=== PATIENT | female | born 1995 | race Two or more races ===

== ENCOUNTER 2019-06-26 19:35 | Observation (INO) | payer MEDICAID ==
[~2019-06-26] VITALS: Ht 190.5 cm; Wt 88.5 kg
[2019-06-26] MEDS ORDERED: LACTATED RINGER'S 1,000 ML IV ONE (20:22)
[2019-06-26 21:16] LABS: Urine Bacteria FEW /hpf (None Seen); Urine Blood Negative /uL (Negative); Urine Mucus FEW (None Seen); Urine Specific Gravity 1.006 (1.001-1.035); Urine WBC 10 /hpf (0 - 5)
[2019-06-26 21:21] LABS: Amphetamine Screen, Urine NEGATIVE (NEGATIVE); Barbiturate Scree,Urine NEGATIVE (NEGATIVE); Benzodiazephine Screen, Urine NEGATIVE (NEGATIVE); Cannabinoid Screen, Urine NEGATIVE (NEGATIVE); Cocaine Screen, Urine NEGATIVE (NEGATIVE); Opiate Scree,Urine NEGATIVE (NEGATIVE); Phencyclidine Screen, Urine NEGATIVE (NEGATIVE)
== END 2019-06-26 21:50 | disposition home or self-care (01) | DRG 566 ==
LOC: LDRP 19:35
PROVIDERS: ADMIT Obstetrics & Gynecology; ATTEND Obstetrics & Gynecology
DX: O26.892 Other specified pregnancy related conditions, second trimester (principal); R10.9 Unspecified abdominal pain; Z3A.26 26 weeks gestation of pregnancy
CPT/HCPCS: 76815; 80307; 81001; G0378; 59025; 81002; 96365

== ENCOUNTER 2019-07-26 22:55 | Observation (INO) | payer MEDICAID ==
[~2019-07-26] VITALS: Ht 160 cm; Wt 86.2 kg
== END 2019-07-27 00:20 | disposition home or self-care (01) | DRG 563 ==
LOC: LDRP 22:55
PROVIDERS: ADMIT Obstetrics & Gynecology; ATTEND Obstetrics & Gynecology
DX: O60.03 Preterm labor without delivery, third trimester (principal); O24.415 Gestational diabetes mellitus in pregnancy, controlled by oral hypoglycemic drugs; O62.9 Abnormality of forces of labor, unspecified; Z3A.30 30 weeks gestation of pregnancy
CPT/HCPCS: 59025; 81002; 82948; 82962; G0378

== ENCOUNTER 2019-09-06 22:32 | Observation (INO) | payer MEDICAID ==
[~2019-09-06] VITALS: Ht 0.1 cm; Wt 0.0 kg
[2019-09-06] MEDS ORDERED: BETAMETHASONE ACET (6MG/ML) 5ML VIAL IM ONE (23:15)
[2019-09-06] MEDS: TERBUTALINE SULFATE 1 MG/ML 1ML VIAL SC PRN (23:50)
[2019-09-07] MEDS: TERBUTALINE SULFATE 1 MG/ML 1ML VIAL SC PRN (00:37)
== END 2019-09-07 01:20 | disposition home or self-care (01) | DRG 566 ==
LOC: LDRP 22:32
PROVIDERS: ADMIT Obstetrics & Gynecology; ATTEND Obstetrics & Gynecology
DX: O36.8130 Decreased fetal movements, third trimester, not applicable or unspecified (principal); O26.893 Other specified pregnancy related conditions, third trimester; R10.9 Unspecified abdominal pain; Z3A.36 36 weeks gestation of pregnancy
CPT/HCPCS: 59025; 76818; 81002; 82962; 96372; G0378; J0702; J3105; 82948

== ENCOUNTER 2019-09-08 00:06 | Observation (INO) | payer MEDICAID ==
[~2019-09-08] VITALS: Ht 160 cm; Wt 88.5 kg
[2019-09-08] MEDS ORDERED: BETAMETHASONE ACET (6MG/ML) 5ML VIAL IM ONE (00:30)
== END 2019-09-08 01:14 | disposition home or self-care (01) | DRG 861 ==
LOC: LDRP 00:06
PROVIDERS: ADMIT Specialist; ATTEND Specialist
DX: Z34.93 Encounter for supervision of normal pregnancy, unspecified, third trimester (principal); Z3A.36 36 weeks gestation of pregnancy
CPT/HCPCS: 59025; 81002; 82962; 96372; G0378

== ENCOUNTER 2019-09-10 13:12 | Observation (INO) | payer MEDICAID | END 2019-09-10 14:55 | disposition home or self-care (01) | DRG 563 | LOC: LDRP 13:12 | PROVIDERS: ADMIT Specialist; ATTEND Specialist | DX: O60.03 Preterm labor without delivery, third trimester (principal); Z3A.36 36 weeks gestation of pregnancy | CPT/HCPCS: 59025; 81002; G0378 ==

== ENCOUNTER 2019-09-15 19:19 | Observation (INO) | payer MEDICAID ==
[2019-09-15] MEDS ORDERED: BUTORPHANOL TARTRATE 2 MG/1 ML VIAL IM ONE (20:00)
== END 2019-09-15 20:08 | disposition home or self-care (01) | DRG 566 ==
LOC: LDRP 19:19
PROVIDERS: ADMIT Obstetrics & Gynecology; ATTEND Obstetrics & Gynecology
DX: O62.9 Abnormality of forces of labor, unspecified (principal); O99.89 Other specified diseases and conditions complicating pregnancy, childbirth and the puerperium; M54.9 Dorsalgia, unspecified; Z3A.37 37 weeks gestation of pregnancy
CPT/HCPCS: 59025; 81002; 82962; G0378

== ENCOUNTER 2019-09-23 10:05 | Inpatient (IN) | payer MEDICAID ==
[~2019-09-23] VITALS: Ht 160 cm; Wt 87.1 kg
[2019-09-23] MEDS ORDERED: LACTATED RINGER'S 1,000 ML IV SCH (11:55)
[2019-09-23] MEDS ORDERED: LACT. RINGERS/OXYTOCIN 20UNITS 1,000 ML IV SCH ×2 (11:55→17:45)
[2019-09-23] MEDS ORDERED: WITCH HAZEL-GLYCERIN PAD TOP PRN (12:00)
[2019-09-23] MEDS ORDERED: PHISODERM TOP SOLN 240ML BTL TOP PRN (12:00)
[2019-09-23] MEDS ORDERED: DERMOPLAST 60ML BOTTLE TOP PRN (12:00)
[2019-09-23] MEDS ORDERED: LIDOCAINE 2%HCL (LOCAL ANESTH.) INJ 20ML MDV ID ONE (12:00)
[2019-09-23 12:43] LABS: Urine Bacteria FEW /hpf (None Seen); Urine Blood Negative /uL (Negative); Urine Mucus FEW (None Seen); Urine Specific Gravity 1.014 (1.001-1.035); Urine WBC 15 /hpf (0 - 5)
[2019-09-23 12:48] LABS: Basophils # (auto) 0 10 ^3/uL (0-0.2); Basophils % (auto) 0.3 % (0.0-2.0); Eosinophils # (auto) 0 10 ^3/uL (0-0.8); Eosinophils % (auto) 0.3 % (0.0-7.0); Hematocrit 40.8 % (36.0-46.0); Hemoglobin 13.9 g/dL (12.2-16.2); Lymphocytes # (auto) 1.7 10 ^3/uL (0.4-5.4); Lymphocytes % (auto) 20.3 % (10.0-50.0); Mean Corpuscular Hemoglobin 30.7 pg (28.0-32.0); Mean Corpuscular Hgb Conc. 34.1 g/dL (32.0-36.0); Monocytes # (auto) 0.3 10 ^3/uL (0-1.3); Monocytes % (auto) 3.7 % (0.0-12.0); Neutrophils # (auto) 6.3 10 ^3/uL (1.6-8.6); Neutrophils % (auto) 75.4 % (37.0-80.0); Platelet Count (auto) 191 10^3/uL (140-450); Red Blood Cells 4.54 10^6/uL (4.0-5.20); White Blood Cell 8.4 10^3/uL (4.4-10.8)
[2019-09-23 12:54] LABS: INR 0.91 (0.9-1.15); Partial Thromboplastin Time 27.3 sec (23.64-32.05)
[2019-09-23 13:00] LABS: Albumin 2.7 g/dL (3.4-5.0); Calcium 9.3 mg/dL (8.5-10.1); Potassium 3.6 mmol/L (3.5-5.1)
[2019-09-23 13:03] LABS: BUN/Creatinine Ratio 9.8; Bilirubin, Total 0.5 mg/dL (0.2-1.0); Total Protein 7.4 g/dL (6.4-8.2)
[2019-09-23] MEDS ORDERED: LACTATED RINGER'S 1,000 ML IV ONE (14:46)
[2019-09-23] MEDS ORDERED: NALOXONE HCL 0.4 MG/ML VIAL IV ONE ×2 (15:00→15:45)
[2019-09-23] MEDS ORDERED: fentaNYL 200mCg/100ml W ROPIVA 100 ML EPI SCH ×2 (15:00→15:45)
[2019-09-23] MEDS ORDERED: ePHEDrine SULFATE 50 MG/ML AMP IV ONE ×2 (15:00→15:45)
[2019-09-23] MEDS ORDERED: LIDOCAINE HCL 2 %PF INJ 10ML AMP IJ ONE (15:45)
[2019-09-23] MEDS ORDERED: fentaNYL CITRATE 100 MCG/2 ML VL IV ONE (15:45)
[2019-09-23] MEDS ORDERED: BUTORPHANOL TARTRATE 2 MG/1 ML VIAL ONE (16:21)
[2019-09-23] MEDS ORDERED: PROMETHAZINE HCL 25 MG/ML 1ML ONE (16:22)
[2019-09-23] MEDS ORDERED: PROMETHAZINE HCL 25 MG/ML 1ML IM ONE (16:30)
[2019-09-23] MEDS ORDERED: BUTORPHANOL TARTRATE 2 MG/1 ML VIAL IV ONE (16:30)
[2019-09-23] MEDS ORDERED: LACT. RINGERS/OXYTOCIN 20UNITS 500 ML IV ONE (16:45)
--- NOTE | 2019-09-23 17:00 | NUR ---
Teaching: Reviewed information in [facility] booklet with patient. Discussed benefits of and risks associated with not . Discussed different positions, proper latch, feeding cues, and baby-led . Provided information of medication side effects related to . All questions and concerns addressed at this time. Patient verbalized understanding of information.
--- NOTE | 2019-09-23 18:57 | NUR ---
Ambulation: Patient OOB with standby assistance by RN. Patient ambulated to bathroom with steady gait. Patient able to void 800ml without difficulty. [facility] teaching provided with returned demonstration by patient. Clean gown provided and bed linen changed. Patient ambulated back to bed with steady gait and no distress noted.
[2019-09-23 19:00] VITALS: BP 135/81
[2019-09-23] MEDS: IBUPROFEN 600 MG TAB PO PRN (19:20)
[2019-09-23] MEDS ORDERED: PREN-96 PO (19:51)
[2019-09-23 23:00] VITALS: BP 131/82
[2019-09-24 03:30] VITALS: BP 125/80
[2019-09-24] MEDS: IBUPROFEN 600 MG TAB PO PRN (04:51)
[2019-09-24 07:30] VITALS: BP 122/82
[2019-09-24 10:55] VITALS: BP 111/71
[2019-09-24 12:34] LABS: RPR Non Reactive (Non Reactive)
[2019-09-24 15:00] VITALS: BP 112/82
[2019-09-24 19:00] VITALS: BP 120/82
--- NOTE | 2019-09-24 19:00 | NUR ---
Discharge: Discharge instructions given as ordered. Pt encouraged to follow up with [facility] as instructed. All questions and concerns addressed. Patient verbalized understanding. Medication reconciliation completed and copy given to patient. All required/requested vaccines given and copies of vaccinations given to patient. Patient encouraged to prepare to depart unit.
--- NOTE | 2019-09-24 19:20 | NUR ---
Discharge: Patient taken to vehicle via wheelchair with all personal belongings, accompanied by staff and family member. No distress noted at time of departure, no adverse changes in status since initial assessment.
[2019-09-24 19:40] VITALS: BP 122/74
== END 2019-09-24 19:20 | disposition home or self-care (01) | DRG 560 ==
LOC: LDRP 10:05 → OBSVTOIN 11:50
PROVIDERS: ADMIT Specialist; ATTEND Specialist
PROC: 10E0XZZ Delivery of Products of Conception, External Approach (ICD-10-PCS; principal; 2019-09-23)
PROC: 10907ZC Drainage of Amniotic Fluid, Therapeutic from Products of Conception, Via Natural or Artificial Opening (ICD-10-PCS; 2019-09-23)
DX: O77.0 Labor and delivery complicated by meconium in amniotic fluid (principal); O24.420 Gestational diabetes mellitus in childbirth, diet controlled; Z37.0 Single live birth; Z3A.38 38 weeks gestation of pregnancy
CPT/HCPCS: 36415; 59025; 59409; 80053; 81001; 81002; 82948; 82962; 84112; 85025; 85610; 85730; 86592; 86850; 86900; 86901; G0378; J2590